=== PATIENT | male | born 1985 | race American Indian/Alaskan Native ===

== ENCOUNTER 2019-08-13 12:00 | Emergency (ER) | payer SELFPAY ==
[2019-08-13 12:07] VITALS: BP 118/88
--- NOTE | 2019-08-13 12:08 | Event Note ---
ED Screening Note Date of service: 08/13/19 Time: 12:06 ED Screening Note: Pt complains of body aches, CHUA, cough x 6 days This initial assessment/diagnostic orders/clinical plan/treatment(s) is/are subject to change based on patients health status, clinical progression and re- assessment by fellow clinical providers in the ED. Further treatment and workup at subsequent clinical providers discretion. Patient/guardian urged not to elope from the ED as their condition may be serious if not clinically assessed and managed. Initial orders include: ACC CXR
--- NOTE | 2019-08-13 12:54 | XRay Report ---
CHEST 2 VIEWS INDICATION: cough. COMPARISON: None. FINDINGS: Support devices: None. Heart: Within normal limits. Lungs/Pleura: No acute air space or interstitial disease. No significant pleural effusion. IMPRESSION: No acute findings. Signer Name: Everton Whitmore MD Signed: 08/13/2019 12:49 PM Workstation Name: [id number]
--- NOTE | 2019-08-13 13:55 | Emergency Department Report ---
HPI - General Chief Complaint: Upper Respiratory Infection Time Seen by Provider: 08/13/19 12:05 - HPI HPI: 34-year-old -[place] male presents to the emergency department with complaint of a 5 to six-day history of some cold-like symptoms. He's been having a mixed dry and productive cough, body aches, subjective fever with chills and sweats. Patient has tried some TheraFlu and Coricidin for his symptoms without much relief. He denies any past medical history. No recent travel. The patient is currently here with someone who says "I recently had the flu and I think I gave it to him." ED Past Medical Hx - Past Medical History Previous Medical History?: No - Surgical History Past Surgical History?: No - Social History Smoking Status: Current Every Day Smoker Substance Use Type: Marijuana - Medications Home Medications: Home Medications Medication Instructions Recorded Confirmed Last Taken Type Ibuprofen [Motrin 800 MG tab] 800 mg PO Q8HR PRN #20 tablet 08/13/19 Unknown Rx guaiFENesin/CODEINE [Robitussin AC] 5 ml PO Q6H PRN #100 ml 08/13/19 Unknown Rx ED Review of Systems ROS: Stated complaint: FLU-LIKE SYMPTOM Other details as noted in HPI Comment: All other systems reviewed and negative Constitutional: chills, fever (subjective) ENT: denies: ear pain, throat pain Respiratory: cough. denies: shortness of breath Gastrointestinal: denies: abdominal pain, vomiting Genitourinary: denies: dysuria, discharge Musculoskeletal: myalgia. denies: joint swelling Neurological: denies: headache, weakness Physical Exam - Physical Exam Vital Signs: Vital Signs 08/13/19 12:05 Temperature 99.3 F Pulse Rate 94 H Respiratory 16 Rate Blood Pressure 118/88 O2 Sat by Pulse 97 Oximetry Physical Exam: GENERAL: The patient is well-developed well-nourished. HEENT: Normocephalic. Atraumatic. Patient has moist mucous membranes. Purnima pharynx is clear without tonsillar hypertrophy, erythema or exudates. EYES: Extraocular motions are intact. Pupils equal and reactive to light bilaterally. NECK: Supple. Trachea is midline CHEST/LUNGS: Clear to auscultation. An occasional productive cough heard during examination. No tachypnea or accessory muscle use. There is no respiratory distress noted. HEART/CARDIOVASCULAR: Regular. There is no tachycardia. ABDOMEN:There is no abdominal distention. SKIN: Skin is warm and dry. NEURO: The patient is awake, alert, and oriented. The patient is cooperative. Normal speech. MUSCULOSKELETAL: There is no tenderness or deformity. There is no evidence of acute injury. ED Course Vital Signs 08/13/19 12:05 Temperature 99.3 F Pulse Rate 94 H Respiratory 16 Rate Blood Pressure 118/88 O2 Sat by Pulse 97 Oximetry ED Medical Decision Making - Radiology Data Radiology results: image reviewed interpreted by me: Chest x-ray does not show any pneumonia, pneumothorax, focal consolidation, pleural effusions, or any other acute process. - Medical Decision Making This patient presents with some cold and/or flulike symptoms for the past week. No fever here and vital signs stable throughout his ED course. Chest x-ray does not show any pneumonia or any other acute process. No other focus of infection seen on physical examination. Occasional cough is heard but no signs of any respiratory distress. The patient is outside the window where Tamiflu would be indicated and therefore rapid flu was not tested. He appears most consistent with a viral upper respiratory infection and will be treated with Robitussin-AC and ibuprofen. Instructed to follow up with PCP and return with any worsening of his symptoms or any acute distress. - Differential Diagnosis influenza, viral URI, pneumonia Critical Care Time: No Critical care attestation.: If time is entered above; I have spent that time in minutes in the direct care of this critically ill patient, excluding procedure time. ED Disposition Clinical Impression: Viral syndrome Upper respiratory infection Qualifiers: URI type: unspecified viral URI Qualified Code(s): J06.9 - Acute upper respiratory infection, unspecified Disposition: DC-01 TO HOME OR SELFCARE Is pt being admited?: No Condition: Stable Instructions: Upper Respiratory Infection (ED), Viral Syndrome (ED) Additional Instructions: Please follow-up with a primary care physician in the next few days. Return to the emergency Department with any worsening of your symptoms or any acute distress. You have been prescribed a medication for your cough that can also be sedating. Therefore, this medication cannot be taken prior to working, driving, being responsible for children, and cannot be mixed with alcohol of any quantity. Prescriptions: Ibuprofen [Motrin 800 MG tab] 800 mg PO Q8HR PRN #20 tablet PRN Reason: Pain , Severe (7-10) guaiFENesin/CODEINE [Robitussin AC] 5 ml PO Q6H PRN #100 ml PRN Reason: Cough Referrals: BETHANY SOTO MD [Staff Physician] - 2-3 Days [facility] [Outside] - 2-3 Days Forms: Accompanied Note, Work/School Release Form(ED) Time of Disposition: 13:55
== END 2019-08-13 14:22 | disposition home or self-care (01) ==
LOC: ED 12:00
DX: B34.9 Viral infection, unspecified (principal); J06.9 Acute upper respiratory infection, unspecified; F17.200 Nicotine dependence, unspecified, uncomplicated; F12.10 Cannabis abuse, uncomplicated; Z79.899 Other long term (current) drug therapy; Z88.2 Allergy status to sulfonamides; Z88.8 Allergy status to other drugs, medicaments and biological substances
CPT/HCPCS: 71046; 99283